=== PATIENT | male | born 1975 | race Caucasian/White ===

== ENCOUNTER 2019-05-22 10:54 | Observation (INO) | payer BC ==
[~2019-05-22] VITALS: Ht 180.3 cm; Wt 139.7 kg
[2019-05-22 10:57] VITALS: BP 150/82
[2019-05-22 11:22] LABS: BASO # 0.1 10*3/uL (0.0-0.1); BASO % 0.8 % (0.0-1.0); EOS # 0.2 10*3/uL (0.0-0.4); EOS % 2.4 % (1.0-4.0); HEMATOCRIT 40.3 % (42.0-52.0); HEMOGLOBIN 13.7 g/dl (14.0-18.0); LYMPH # 1.9 10*3/uL (1.3-4.4); LYMPH % 26.7 % (27.0-41.0); MEAN CELL VOLUME 93.5 fl (80.0-94.0); MEAN CORPUSCULAR HGB 31.8 pg (27.0-31.0); MEAN PLATELET VOLUME 10.5 fl (9.6-12.3); MONO # 0.7 10*3/uL (0.1-1.0); MONO % 10.3 % (3.0-9.0); NEUT # 4.2 10*3/uL (2.3-7.9); NEUT % 59.5 % (47.0-73.0); PLATELET COUNT AUTOMATED 244 10*3/uL (130-400); RED BLOOD COUNT 4.31 10*6/uL (4.50-5.90); RED CELL DISTRI WIDTH 12.2 % (0-14.5); WHITE BLOOD COUNT 7.1 10*3/uL (4.8-10.8)
[2019-05-22 11:33] LABS: ACT PARTIAL THROMBO TIME 30.4 SECONDS (20.0-32.1); INTERNATIONAL NORM RATIO 0.9 (2.0-3.5)
[2019-05-22 11:37] LABS: ALBUMIN 3.9 gm/dl (3.1-4.5); ALKALINE PHOSPHATASE 69 U/L (45-117); BUN 11 mg/dl (7-24); CHLORIDE 107 mmol/L (98-107); CREATININE 0.92 mg/dL (0.70-1.30); SGOT/AST 15 IU/L (3-35); SGPT/ALT 24 U/L (12-78); SODIUM 142 mmol/L (136-145); TOTAL PROTEIN 7.5 gm/dL (6.4-8.2)
[2019-05-22 11:48] LABS: TROPONIN I < 0.015 ng/ml (<0.045)
[2019-05-22 11:53] VITALS: BP 129/58
[2019-05-22 12:30] VITALS: BP 137/65
--- NOTE | 2019-05-22 12:30 | NUR ---
A 44, admitted to , under the services of BOB Roberto DO with a diagnosis of CHEST PAIN. Chief complaint is CHEST PAIN. Patient arrived via bed from ER. Monitor applied. Initial assessment completed. Vital signs taken and recorded. BOB ROBERTO DO notified of admission to the unit. Orders received. See assessment for past medical history, medications and allergies. Patient and/or family oriented to unit. [address] visitation policy reviewed. Clothing/patient valuable form completed. CORINNE WILKINS R
[2019-05-22] MEDS ORDERED: NORVASC10 MG PO (12:41)
[2019-05-22] MEDS ORDERED: SIMVASTATIN20 MG PO (12:41)
[2019-05-22] MEDS ORDERED: LISINOPRIL40 MG PO (12:41)
[2019-05-22] MEDS ORDERED: OMEPRAZOLE20 M2 PO (12:42)
--- NOTE | 2019-05-22 12:51 | NUR ---
URIEL DANGELO MADE AWARE PT IN ROOM AND MEDICATIONS ARE VERIFIED.
[2019-05-22 16:00] VITALS: BP 119/61
--- NOTE | 2019-05-22 16:20 | NUR ---
RESTING IN BED. NO C/O AT THIS TIME. CALL LIGHT IN REACH. SEE SHIFT ASSESSMENT.
--- NOTE | 2019-05-22 17:55 | NUR ---
SPOKE WITH DR. DANGELO REMINDED HIM HOME MEDICATIONS NEEDED ORDERED.
--- NOTE | 2019-05-22 18:00 | NUR ---
RESTING IN BED. NO C/O AT THIS TIME. CALL LIGHT IN REACH.
[2019-05-22 20:00] VITALS: BP 133/62
[2019-05-23] VITALS: BP 120/59
--- NOTE | 2019-05-23 01:36 | NUR ---
PT ASLEEP IN BED. NO S/S OF DISTRESS NOTED. WILL MONITOR. CALL LIGHT IN REACH.
--- NOTE | 2019-05-23 05:13 | NUR ---
PT DENIES ANY NEEDS AT THIS TIME. WILL MONITOR.
[2019-05-23 06:02] LABS: BASO % 0.4 % (0.0-1.0); EOS # 0.2 10*3/uL (0.0-0.4); EOS % 2.3 % (1.0-4.0); HEMATOCRIT 40.1 % (42.0-52.0); HEMOGLOBIN 13.6 g/dl (14.0-18.0); LYMPH # 1.8 10*3/uL (1.3-4.4); LYMPH % 21.6 % (27.0-41.0); MEAN CELL VOLUME 92.4 fl (80.0-94.0); MEAN CORPUSCULAR HGB 31.3 pg (27.0-31.0); MEAN CORPUSCULAR HGB CONC 33.9 g/dl (33.0-37.0); MEAN PLATELET VOLUME 10.7 fl (9.6-12.3); MONO # 0.8 10*3/uL (0.1-1.0); MONO % 9.7 % (3.0-9.0); NEUT # 5.5 10*3/uL (2.3-7.9); NEUT % 65.8 % (47.0-73.0); PLATELET COUNT AUTOMATED 239 10*3/uL (130-400); RED BLOOD COUNT 4.34 10*6/uL (4.50-5.90); RED CELL DISTRI WIDTH 12.1 % (0-14.5); WHITE BLOOD COUNT 8.3 10*3/uL (4.8-10.8)
[2019-05-23 06:26] LABS: ALBUMIN 3.6 gm/dl (3.1-4.5); ALKALINE PHOSPHATASE 61 U/L (45-117); BUN 11 mg/dl (7-24); CHLORIDE 106 mmol/L (98-107); CREATININE 1.02 mg/dL (0.70-1.30); POTASSIUM 4.1 mmol/L (3.5-5.1); SGOT/AST 13 IU/L (3-35); SGPT/ALT 24 U/L (12-78); SODIUM 142 mmol/L (136-145); TOTAL PROTEIN 7.1 gm/dL (6.4-8.2)
--- NOTE | 2019-05-23 07:45 | NUR ---
PT RESTING IN BED WITH VISITOR AT HIS SIDE. RESP-EASY AND REGULAR. NO C/O AT THIS TIME. CALL LIGHT IN REACH. DENIES CP.
[2019-05-23 08:00] VITALS: BP 118/68
--- NOTE | 2019-05-23 09:00 | NUR ---
Database Management Specialist in to talk to patient. Patient states lives at home with . There are few steps in the home. Physician: [facility]acy: [facility] [place] [facility]: none Patient's level of ADLs: INDEPENDENT Patient has working utilities: all working DME: none Follow-up physician's appointment after d/c: will be made by hospitalist nurse director upon discharge Does patient want to access PORTAL?: no Discharge plan discussed with patient, patient states he lives at home with his out of state but is in this area working, he is independent in adls and ambulation, patient states he will be returning home and denies any home needs. HUSEYIN JENSEN
--- NOTE | 2019-05-23 10:13 | NUR ---
Discharge instructions reviewed with patient/family. Patient receptive and verbalizes understanding. Follow-up care arranged. Written instructions given to patient/family. HEPLOCK REMOVED 2X2 APPLIED. MONITOR REMOVED. CORINNE WILKINS
--- NOTE | 2019-05-23 10:23 | NUR ---
PT AMBULATORY OFF THE FLOOR FOR DISCHARGE.
[2019-08-29] MEDS ORDERED: PROTONIX40 MG PO (10:19)
== END 2019-05-23 10:23 | disposition home or self-care (01) ==
LOC: ED 10:54 → 4E 11:54 → EDHOLD 11:54 → 4E 12:21
PROVIDERS: Emergency Medicine; Student in an Organized Health Care Education/Training Program; ADMIT Internal Medicine
DX: R07.89 Other chest pain (principal); D64.9 Anemia, unspecified; E83.41 Hypermagnesemia; I10 Essential (primary) hypertension; E78.5 Hyperlipidemia, unspecified; K44.9 Diaphragmatic hernia without obstruction or gangrene; Z87.891 Personal history of nicotine dependence

== ENCOUNTER → 2019-05-26 | Outpatient (CLI) | payer BC ==
[~2019-05-26] MED LIST: LISINOPRIL40 MG PO; NORVASC10 MG PO; OMEPRAZOLE20 M2 PO; SIMVASTATIN20 MG PO
[2019-05-26 16:16] LABS: CHOLESTEROL 150 mg/dL (<200); HDL CHOLESTEROL 44 mg/dl (40-60); LDL CHOLESTEROL 70 mg/dL (9-159); TRIGLYCERIDES 182 mg/dl (<150); VLDL CHOLESTEROL 36 mg/dL (6-40)
== END | disposition home or self-care (01) ==
LOC: RESCLI 02:34
PROVIDERS: Hospitalist
DX: K21.9 Gastro-esophageal reflux disease without esophagitis (principal); I10 Essential (primary) hypertension; K44.9 Diaphragmatic hernia without obstruction or gangrene; E78.5 Hyperlipidemia, unspecified; Z76.89 Persons encountering health services in other specified circumstances; Z68.41 Body mass index [BMI] 40.0-44.9, adult; Z87.898 Personal history of other specified conditions; Z79.899 Other long term (current) drug therapy; Z87.891 Personal history of nicotine dependence

== ENCOUNTER → 2019-06-27 | Outpatient (CLI) | payer BC | END | disposition home or self-care (01) | LOC: RESCLI 00:46 | DX: R23.8 Other skin changes (principal); I10 Essential (primary) hypertension; K21.9 Gastro-esophageal reflux disease without esophagitis; E78.5 Hyperlipidemia, unspecified; Z68.41 Body mass index [BMI] 40.0-44.9, adult; Z79.899 Other long term (current) drug therapy ==

== ENCOUNTER → 2019-08-01 | Outpatient (CLI) | payer BC | END | disposition home or self-care (01) | LOC: RESCLI 02:53 | DX: I10 Essential (primary) hypertension (principal); K21.9 Gastro-esophageal reflux disease without esophagitis; E78.5 Hyperlipidemia, unspecified; E66.01 Morbid (severe) obesity due to excess calories; R23.8 Other skin changes; Z68.41 Body mass index [BMI] 40.0-44.9, adult; Z87.891 Personal history of nicotine dependence; Z72.89 Other problems related to lifestyle; Z79.899 Other long term (current) drug therapy; Z88.8 Allergy status to other drugs, medicaments and biological substances ==

== ENCOUNTER → 2019-08-29 | Outpatient (CLI) | payer BC ==
[~2019-08-29] MED LIST changes: +PROTONIX40 MG PO
--- NOTE | 2019-08-29 11:00 | NUR ---
INFORMED CONSENT OBTAINED FOR STANDARD GXT WITH DR. ARELLANO. RESTING EKG NSR WITH A SUPINE HR OF 67 WITH BP OF 120/66 AND HR OF 80 WITH BP OF 106/66 IN STANDING POSITION. PT COMPLETED 7:11 OF A ELIZABETH PROTOCOL AND COMPLETED 1:11 OF STAGE III AT 3.4 MPH AND 14% GRADE. TEST TERMINATED BECAUSE OF PHYSICIAN DISCRETION. REACHED A HR OF 159 WHICH IS 91% OF PREDICTED MAX WITH A PEAK BP OF 168/70. HAD NO CHEST PAIN OR ANY ST DEPRESSION. IN STAGE I DID DEVELOP T WAVE INVERSIONS IN LEADS II,III,AVF AND V4-V6. HAS AN AVERAGE EXERCISE TOLERANCE. LAST RECOVERY HR OF 100 WITH BP OF 124/68. DR. ARELLANO DISCUSSED WITH PT SYMPTOMS OF PRECORDIAL CHEST PAIN AND T WAVE INVERSIONS AND ORDER RECEIVED FOR CARDIOLITE GXT. [facility] NOTIFIED FOR PRIOR AUTHORIZATION. AWAITING FOR SCHEDULED ECHOCARDIOGRAM IN STABLE CONDITION.
== END | disposition home or self-care (01) ==
LOC: CARD 08-28 11:30
DX: I10 Essential (primary) hypertension (principal); Z87.898 Personal history of other specified conditions

== ENCOUNTER 2019-09-15 09:05 | Emergency (ER) | payer BC ==
[~2019-09-15] VITALS: Ht 180.3 cm; Wt 132.4 kg
== END 2019-09-15 11:31 | disposition home or self-care (01) ==
LOC: ED 09:05
DX: F32.9 Major depressive disorder, single episode, unspecified (principal); I10 Essential (primary) hypertension; E78.5 Hyperlipidemia, unspecified; E66.9 Obesity, unspecified; Z87.891 Personal history of nicotine dependence; Z79.899 Other long term (current) drug therapy

== ENCOUNTER → 2019-10-11 | Outpatient (CLI) | payer BC | END | disposition home or self-care (01) | LOC: RESCLI 01:09 | DX: I10 Essential (primary) hypertension (principal); K21.9 Gastro-esophageal reflux disease without esophagitis; E78.5 Hyperlipidemia, unspecified; E66.01 Morbid (severe) obesity due to excess calories; F32.9 Major depressive disorder, single episode, unspecified; Z68.41 Body mass index [BMI] 40.0-44.9, adult; Z79.899 Other long term (current) drug therapy; Z87.891 Personal history of nicotine dependence ==

== ENCOUNTER → 2019-10-17 | Outpatient (CLI) | payer BC ==
--- NOTE | 2019-10-17 11:00 | NUR ---
INFORMED CONSENT OBTAINED FOR EXERCISE CARDIOLITE STRESS TEST WITH DR. ARELLANO. RESTING EKG NSR WITH A SUPINE HR OF 70 WITH BP OF 128/78 AND HR OF 86 WITH BP OF 110/70 IN STANDING POSITION. PT COMPLETED 8:00 OF A ELIZABETH PROTOCOL WITH COMPLETION OF 2:00 OF STAGE III AT 3.4 MPH AND 14% GRADE. REACHED A PEAK HR OF 163 WHICH IS 94% OF PREDICTED MAX WITH A PEAK BP OF 180/90. TEST TERMINATED BECAUSE OF FATIGUE. HAD NO CHEST PAIN. EKG HAD NONSPECIFIC ST CHANGES. HAS AN AVERAGE EXERCISE TOLERANCE. LAST RECOVERY HR OF 109 WITH BP OF 136/70. TO NUCLEAR MEDICINE IN STABLE CONDITION FOR SCANNING.
== END | disposition home or self-care (01) ==
LOC: CARD 00:44
DX: I10 Essential (primary) hypertension (principal); Z87.898 Personal history of other specified conditions

== ENCOUNTER → 2019-11-15 | Outpatient (CLI) | payer BC | END | disposition home or self-care (01) | LOC: RESCLI 00:14 | DX: I10 Essential (primary) hypertension (principal); E78.5 Hyperlipidemia, unspecified; E66.01 Morbid (severe) obesity due to excess calories; K21.9 Gastro-esophageal reflux disease without esophagitis; F32.9 Major depressive disorder, single episode, unspecified; F41.9 Anxiety disorder, unspecified; Z68.41 Body mass index [BMI] 40.0-44.9, adult; Z79.899 Other long term (current) drug therapy ==

== ENCOUNTER → 2020-04-19 | Outpatient (CLI) | payer OTHER | END | disposition home or self-care (01) | LOC: RESCLI 14:51 | DX: R07.9 Chest pain, unspecified (principal); I10 Essential (primary) hypertension; K21.9 Gastro-esophageal reflux disease without esophagitis; E78.5 Hyperlipidemia, unspecified; M54.2 Cervicalgia; I73.9 Peripheral vascular disease, unspecified; Z79.899 Other long term (current) drug therapy; Z87.891 Personal history of nicotine dependence ==

== ENCOUNTER → 2020-05-24 | Outpatient (CLI) | payer OTHER | END | disposition home or self-care (01) | LOC: RESCLI 01:03 | PROVIDERS: ATTEND Internal Medicine | DX: I10 Essential (primary) hypertension (principal); K21.9 Gastro-esophageal reflux disease without esophagitis; E78.5 Hyperlipidemia, unspecified; F32.9 Major depressive disorder, single episode, unspecified; R53.83 Other fatigue; M54.2 Cervicalgia; Z87.891 Personal history of nicotine dependence; Z79.899 Other long term (current) drug therapy ==

== ENCOUNTER → 2020-06-24 | Outpatient (CLI) | payer OTHER ==
[2020-06-24 10:02] LABS: BASO % 0.5 % (0.0-1.0); EOS # 0.2 10*3/uL (0.0-0.4); HEMATOCRIT 44.1 % (42.0-52.0); LYMPH # 1.6 10*3/uL (1.3-4.4); LYMPH % 26.9 % (27.0-41.0); MEAN CELL VOLUME 90.4 fl (80.0-94.0); MEAN CORPUSCULAR HGB 30.5 pg (27.0-31.0); MEAN CORPUSCULAR HGB CONC 33.8 g/dl (33.0-37.0); MEAN PLATELET VOLUME 10.5 fl (9.6-12.3); MONO # 0.5 10*3/uL (0.1-1.0); MONO % 8.8 % (3.0-9.0); NEUT # 3.6 10*3/uL (2.3-7.9); NEUT % 60.6 % (47.0-73.0); PLATELET COUNT AUTOMATED 241 10*3/uL (130-400); RED BLOOD COUNT 4.88 10*6/uL (4.50-5.90); RED CELL DISTRI WIDTH 12.3 % (0-14.5); WHITE BLOOD COUNT 5.9 10*3/uL (4.8-10.8)
[2020-06-24 10:24] LABS: ALKALINE PHOSPHATASE 60 U/L (45-117); BUN 15 mg/dl (7-24); CHLORIDE 109 mmol/L (98-107); CHOLESTEROL 172 mg/dL (<200); CREATININE 1.03 mg/dL (0.70-1.30); HDL CHOLESTEROL 43 mg/dl (40-60); LDL CHOLESTEROL 100 mg/dL (9-159); SGOT/AST 17 IU/L (3-35); SGPT/ALT 27 U/L (12-78); SODIUM 140 mmol/L (136-145); TOTAL PROTEIN 7.9 gm/dL (6.4-8.2); TRIGLYCERIDES 147 mg/dl (<150); VLDL CHOLESTEROL 29 mg/dL (6-40)
[2020-06-24 10:31] LABS: THYROID STIM HORMONE (HS) 0.636 uIU/ml (0.358-4.75)
[2020-06-24 11:04] LABS: VITAMIN D, 25-HYDROXY 19.3 ng/mL (30-100)
== END | disposition home or self-care (01) ==
LOC: LAB 09:43
PROVIDERS: Student in an Organized Health Care Education/Training Program; ATTEND Internal Medicine Nephrology
DX: I10 Essential (primary) hypertension (principal); R53.83 Other fatigue; E78.5 Hyperlipidemia, unspecified

== ENCOUNTER → 2020-06-27 | Outpatient (CLI) | payer OTHER | END | disposition home or self-care (01) | LOC: RESCLI → EDSTATUS 10:36 | PROVIDERS: ATTEND Internal Medicine Nephrology | DX: F32.9 Major depressive disorder, single episode, unspecified (principal); I10 Essential (primary) hypertension; K21.9 Gastro-esophageal reflux disease without esophagitis; E78.5 Hyperlipidemia, unspecified; E55.9 Vitamin D deficiency, unspecified; Z68.41 Body mass index [BMI] 40.0-44.9, adult; Z79.899 Other long term (current) drug therapy; Z87.891 Personal history of nicotine dependence ==

== ENCOUNTER → 2020-08-02 | Outpatient (CLI) | payer OTHER | END | disposition home or self-care (01) | LOC: RESCLI 01:53 | PROVIDERS: ATTEND Internal Medicine | DX: F32.9 Major depressive disorder, single episode, unspecified (principal); I10 Essential (primary) hypertension; K21.9 Gastro-esophageal reflux disease without esophagitis; E78.5 Hyperlipidemia, unspecified; E55.9 Vitamin D deficiency, unspecified; Z68.41 Body mass index [BMI] 40.0-44.9, adult ==

== ENCOUNTER → 2021-02-25 | Outpatient (CLI) | payer OTHER | END | disposition home or self-care (01) | LOC: RESCLI 01:14 | PROVIDERS: ATTEND Family Medicine | DX: F32.9 Major depressive disorder, single episode, unspecified (principal); I10 Essential (primary) hypertension; K21.9 Gastro-esophageal reflux disease without esophagitis; E78.5 Hyperlipidemia, unspecified; E55.9 Vitamin D deficiency, unspecified; Z68.41 Body mass index [BMI] 40.0-44.9, adult; G47.30 Sleep apnea, unspecified; Z79.899 Other long term (current) drug therapy; Z87.891 Personal history of nicotine dependence ==